=== PATIENT | male | born 1950 | race Caucasian/White ===

== ENCOUNTER 2016-11-26 07:02 | Outpatient (CLI) | payer OTHER | END 2016-11-26 07:03 | LOC: LAB 07:02 | PROVIDERS: ATTEND Family Medicine | DX: E11.9 Type 2 diabetes mellitus without complications (principal) | CPT/HCPCS: 36415; 83036 ==

== ENCOUNTER 2017-04-22 09:19 | Outpatient (CLI) | payer OTHER | END 2017-04-22 09:20 | LOC: LAB 09:19 | PROVIDERS: ATTEND Family Medicine | DX: E11.9 Type 2 diabetes mellitus without complications (principal) | CPT/HCPCS: 36415; 83036 ==

== ENCOUNTER 2017-06-19 15:43 | Outpatient (CLI) | payer OTHER ==
[2017-06-19 16:01] LABS: BASOPHILS % 1.1 (0.0-1.5); EOSINOPHILS % 5.2 % (0.0-6.8); MEAN CORPUSCULAR HEMOGLOBIN 27.7 pg (28.0-34.0); MONOCYTES % 6.5 % (0.0-11.0); NEUTROPHILS # 5.6 # k/uL (1.4-7.7)
[2017-06-19 16:28] LABS: eGFR (African) > 60; eGFR (Non-African) > 60
--- NOTE | 2017-06-19 18:09 | Diagnostic Imaging Report ---
ABIGAIL ECKERT [facility] [address] [facility].[address] [id number] Report Submission Date: Jun 19, 2017 4:38:13 PM CDT Patient Study Name: SUMA RINALDI Date: Jun 19, 2017 4:03:45 PM CDT Modality Type: CR Gender: M Description: SPINE : 46 Institution: [facility] Physician: ABIGAIL ECKERT Examination: Plain film lumbar spine History: Back discomfort Findings: 3 views of the lumbar spine demonstrate normal height. No anterior compression. Anterior lateral and posterior osteophytes. L4/L5 an L5/S1 disc space narrowing. No soft tissue abnormalities. Impression: Degenerative changes. No compression deformity. If patient is experiencing neurologic symptoms, consider obtaining MRI. Electronically signed on Jun 19, 2017 4:38:13 PM CDT by: Dakota BOOKER
== END 2017-06-19 15:44 ==
LOC: RAD 15:43
PROVIDERS: ATTEND Family Medicine
DX: M54.9 Dorsalgia, unspecified (principal)
CPT/HCPCS: 36415; 72100; 80048; 85025

== ENCOUNTER 2017-12-09 07:26 | Outpatient (CLI) | payer OTHER ==
[2017-12-09 08:27] LABS: eGFR (African) > 60; eGFR (Non-African) > 60
== END 2017-12-09 07:28 ==
LOC: LAB 07:26
PROVIDERS: ATTEND Family Medicine
DX: E11.9 Type 2 diabetes mellitus without complications (principal)
CPT/HCPCS: 36415; 80053; 80061; 83036

== ENCOUNTER 2018-04-08 07:23 | Outpatient (CLI) | payer OTHER | END 2018-04-08 07:24 | LOC: LAB 07:23 | PROVIDERS: ATTEND Family Medicine | DX: E11.9 Type 2 diabetes mellitus without complications (principal) | CPT/HCPCS: 36415; 83036 ==

== ENCOUNTER 2018-07-30 14:51 | Outpatient (CLI) | payer OTHER | END 2018-07-30 14:53 | LOC: LAB 14:51 | PROVIDERS: ATTEND Family Medicine | DX: E11.9 Type 2 diabetes mellitus without complications (principal) | CPT/HCPCS: 36415; 82043; 83036 ==

== ENCOUNTER 2018-12-08 07:57 | Outpatient (CLI) | payer OTHER ==
[2018-12-08 08:48] LABS: eGFR (Non-African) > 60
== END 2018-12-08 08:05 ==
LOC: LAB 07:57
PROVIDERS: ATTEND Orthopaedic Surgery
DX: Z01.812 Encounter for preprocedural laboratory examination (principal); G56.03 Carpal tunnel syndrome, bilateral upper limbs; M65.331 Trigger finger, right middle finger; M65.332 Trigger finger, left middle finger; I10 Essential (primary) hypertension; E11.9 Type 2 diabetes mellitus without complications
CPT/HCPCS: 36415; 80048; 83036

== ENCOUNTER 2019-04-27 07:28 | Outpatient (CLI) | payer OTHER ==
[2019-04-27 08:59] LABS: HDL 36 mg/dL (>40); eGFR (Non-African) > 60
== END 2019-04-27 07:30 ==
LOC: LAB 07:28
PROVIDERS: ATTEND Family Medicine
DX: E11.9 Type 2 diabetes mellitus without complications (principal)
CPT/HCPCS: 36415; 80053; 80061

== ENCOUNTER 2019-05-11 12:52 | Outpatient (CLI) | payer OTHER | END 2019-05-11 12:54 | LOC: LAB 12:52 | PROVIDERS: ATTEND Family Medicine | DX: E11.9 Type 2 diabetes mellitus without complications (principal) | CPT/HCPCS: 36415; 83036 ==

== ENCOUNTER 2019-08-11 15:00 | Outpatient (CLI) | payer OTHER | END 2019-08-11 15:05 | LOC: LAB 15:00 | PROVIDERS: ATTEND Family Medicine | DX: E11.9 Type 2 diabetes mellitus without complications (principal) | CPT/HCPCS: 36415; 83036 ==